=== PATIENT | female | born 2000 | race Caucasian/White ===

== ENCOUNTER 2022-04-25 15:06 | Outpatient (CLI) | payer BC, SELFPAY ==
[2022-04-25 16:32] LABS: Albumin* 5.1 g/dL (3.3-5.0); Chloride* 105 mmol/L (96-114); Potassium* 3.6 mmol/L (3.6-5.1); Sodium* 139 mmol/L (135-149)
[2022-04-25 16:34] LABS: Bilirubin Total* 0.6 mg/dL (0.1-1.5); Carbon Dioxide* 25 mmol/L (20-32); Estimated Glomerular Filt Rate 83 ml/min
[2022-04-25 16:35] LABS: Alanine Aminotransferase* 18 U/L (4-35); Alkaline Phosphatase* 64 U/L (40-150); Aspartate Amino Transferase* 35 U/L (12-35); Blood Urea Nitrogen* 18 mg/dL (5-24); Calcium* 9.7 mg/dL (8.4-10.6); Glucose* 90 mg/dL (60-115); Total Protein* 8.2 g/dL (6.0-8.3)
== END 2022-04-25 15:07 | disposition home or self-care (01) ==
LOC: NFLDUCREF 15:15
PROVIDERS: Visit Provider Student in an Organized Health Care Education/Training Program
DX: R11.2 Nausea with vomiting, unspecified (principal); R42 Dizziness and giddiness
CPT/HCPCS: 80053

== ENCOUNTER 2024-01-16 13:04 | Emergency (ER) | payer BC, SELFPAY ==
[2024-01-16] VITALS (17 sets, daily range): BP systolic 66–128; BP diastolic 52–82; PULSE 75–110; RESP 16; TEMP 36.4; O2SAT 98–100; BMI 20.5
--- NOTE | 2024-01-16 14:06 | ED_ITS ---
HPI - Dizziness General Chief Complaint: Dizziness/Vertigo Stated Complaint: +Covid, dizzy Time Seen by Provider: 01/16/24 13:29 History of Present Illness HPI Narrative: This 23-year-old female comes in reporting lightheadedness symptoms. She has a pre-existing history of POTS syndrome and celiac disease. She was diagnosed with COVID a few days ago and started Paxil of it yesterday. She states that she is feeling better in that regard but comes in with nausea and decreased food intake and feeling persistently lightheaded. She does arrive with the borderline tachycardia with rate at 100 2 beats per minute. Other vital signs are normal. Related Data Home Medications ?Medication ?Instructions ?Recorded ?Confirmed meloxicam 15 mg tablet 15 mg PO DAILY 04/25/22 01/16/24 omeprazole 40 mg capsule,delayed 40 mg PO DAILY 04/25/22 01/16/24 release sumatriptan succinate 100 mg tablet 100 mg PO .prn 04/25/22 01/16/24 nirmatrelvir 150 mg-ritonavir 100 See Rx Instructions PO .COMPLEX 01/16/24 01/16/24 mg tablets in a dose pack (Paxlovid) Allergies Allergy/AdvReac Type Severity Reaction Status Date / Time amoxicillin Allergy Verified 01/16/24 13:13 Review of Systems Status of ROS: Reports: 10 or more systems reviewed and unremarkable except as noted in History and below Narrative: Constitutional: No fevers, no weight gain or loss. Eyes: No discharge. No vision changes. HENT: Nasal congestion, no sore throat, no ear pain. Cardiovascular: No chest pain, no palpitations. Respiratory: No shortness of breath, no wheezes. Gastrointestinal: No abdominal pain, no vomiting, no diarrhea. Genitourinary: No dysuria, no hematuria. Musculoskeletal: Normal range of motion. Skin: No rashes, no pruritis. Neurological: No weakness, sensory change, speech change. Endo/Heme/Allergies: No bruising or bleeding. No polydipsia. Pysch: no suicidality, no anxiety, no insomnia. All other systems reviewed and are negative. PFS PFS Social History Smoking Status: Never smoker Do you use any of these nicotine containing products: None Second hand tobacco smoke exposure: No How often do you have a drink containing alcohol: never AUDIT-C Alcohol total score: 0 Non-prescribed substance use: denies use Exam Narrative: Exam Narrative: Constitutional: Well-developed, well-nourished, no acute distress. HEENT: Normocephalic, atraumatic. Neck: Normal range of motion. Nontender. Supple. Heart: Regular. No murmurs. Borderline tachycardia. Intact distal pulses. Lungs: Clear to auscultation. No chest discomfort. No wheezes, rhonchi, or rales. Abdomen: Normal bowel sounds. Nontender. No rebound tenderness. Genitalia: Deferred. Back: No midline tenderness. Normal range of motion. Extremities: Normal range of motion. No injury. Skin: Intact. No rash. Warm. No erythema or pallor. Neurologic: No altered sensation. No weakness. Alert and oriented. Psychiatric: No suicidality. No anxiety or depression. No insomnia. Nursing notes and vitals signs are reviewed. Const: Vital Signs, click to edit/add: Vital Signs - 24 hr 01/16/24 13:14 Temperature 97.6 F Pulse Rate [Pulse Oximeter] 102 H Respiratory Rate 16 Blood Pressure [Ri ght Upper Arm] 128/82 Pulse Oximetry 98 Oxygen Delivery Me thod Room Air Course Vital Signs Vital signs: Initial Vital Signs Temperature 97.6 F 01/16/24 13:14 Temperature Source Temporal Artery Scan 01/16/24 13:14 Pulse Rate 102 H 01/16/24 13:14 Respiratory Rate 16 01/16/24 13:14 Blood Pressure 128/82 01/16/24 13:14 Blood Pressure Mean 97 01/16/24 13:14 Blood Pressure Position Sitting 01/16/24 13:14 Pulse Oximetry 98 01/16/24 13:14 Oxygen Delivery Method Room Air 01/16/24 13:14 Vital Signs Temperature 97.6 F 01/16/24 13:14 Pulse Rate 102 H 01/16/24 13:14 Respiratory Rate 16 01/16/24 13:14 Blood Pressure 128/82 01/16/24 13:14 Pulse Oximetry 98 01/16/24 13:14 Oxygen Delivery Method Room Air 01/16/24 13:14 Temperature 97.6 F 01/16/24 13:14 Pulse Rate 102 H 01/16/24 13:14 Respiratory Rate 16 01/16/24 13:14 Blood Pressure 128/82 01/16/24 13:14 Pulse Oximetry 98 01/16/24 13:14 Oxygen Delivery Method Room Air 01/16/24 13:14 Medications Administered Medications: Discontinued Medications Generic Name Dose Route Start Last Admin Trade Name Obey PRRadha Reason Stop Dose Admin Dexamethasone 10 mg 01/16/24 14:03 01/16/24 14:35 Dexamethasone 4 Mg/Ml Vial IV 01/16/24 14:04 10 mg ONCE ONE Administration Dextrose/Sodium Chloride 1,000 mls @ 1,000 mls/hr 01/16/24 14:03 01/16/24 15:49 5 % Dextrose/0.45% Sod Chlor IV 01/16/24 15:02 Infused .Q1H ONE Infusion Ketorolac Tromethamine 15 mg 01/16/24 14:03 01/16/24 14:35 Ketorolac 30 Mg/Ml Inj IVP 01/16/24 14:04 15 mg ONCE ONE Administration Ondansetron HCl 4 mg 01/16/24 14:03 01/16/24 14:35 Ondansetron 2 Mg/Ml Inj IVP 01/16/24 14:04 4 mg ONCE ONE Administration MDM - Dizziness MDM Narrative Medical decision making narrative: This patient comes in reporting nausea and lightheadedness symptoms. An IV was established where she received 4 mg of Zofran and a L of D5 half-normal saline. Her nausea symptoms have improved but she continues to feel lightheaded. Her blood pressure on arrival was a systolic value of 128 and pulse was borderline tachycardic. She had subsequent readings of blood pressure with systolic value in the 80s. She is laying on her side which may affect the blood pressure readings. She has normal return of basic metabolic panel results. The patient did receive 2 more L of normal saline. Lab Data Labs: Lab Results 01/16/24 Range/Units 14:30 Sodium 138 (135-149) mmol/L Potassium 3.9 (3.6-5.1) mmol/L Chloride 106 (96-114) mmol/L Carbon Dioxide 24 (20-32) mmol/L Anion Gap 8 (7-15) mEq/L BUN 20 (5-24) mg/dL Creatinine 0.7 (0.5-1.5) mg/dL Estimated Creat Clear 111.03 Estimated GFR 125 ml/min Glucose 75 (60-115) mg/dL Calcium 9.4 (8.4-10.6) mg/dL Discharge Plan Discharge Clinical Impression: Volume depletion, COVID-19 Patient Disposition: Home, Self-Care Condition: Stable Additional Instructions: Take fluids and continue current medications. Increase diet as tolerated. Follow up with MD return if worsening. Prescriptions: No Action omeprazole 40 mg capsule,delayed release(DR/EC) 40 mg PO DAILY Patient Comments: TAKE 1 CAPSULE BY MOUTH DAILY 30 MINS BEFORE BREAKFAST FOR 90 DAYS. meloxicam 15 mg tablet 15 mg PO DAILY sumatriptan succinate 100 mg tablet 100 mg PO .prn Patient Comments: TAKE 1 TABLET BY MOUTH, CAN BE REPEATED AFTER 2 HOURS; MAX DOSE 200 MG PER DAY. Paxlovid 150-100 mg tablets,dose pack See Rx Instructions .ROUTE .COMPLEX Rx Instructions: orally per package directions Follow Up/Referrals: Provider,Not a Local [Primary Care Provider] - Stand Alone [facility]: [facility] Info Inst[facility]
[2024-01-16] MEDS: KETOROLAC 30 MG/ML inj 15 MG IVP (14:35)
[2024-01-16] MEDS: 5 % DEXTROSE/0.45% SOD CHLOR 1,000 ML 1000 ML IV (14:35)
[2024-01-16] MEDS: ONDANSETRON 2 MG/ML inj 4 MG IVP (14:35)
[2024-01-16] MEDS: dexAMETHasone 4 MG/ML VIAL 10 MG IV (14:35)
[2024-01-16 15:14] LABS: Chloride* 106 mmol/L (96-114); Potassium* 3.9 mmol/L (3.6-5.1); Sodium* 138 mmol/L (135-149)
[2024-01-16 15:17] LABS: Anion Gap 8 mEq/L (7-15); Carbon Dioxide* 24 mmol/L (20-32); Creatinine* 0.7 mg/dL (0.5-1.5); Est. Creatinine Clearance* 111.03; Estimated Glomerular Filt Rate 125 ml/min
[2024-01-16 15:18] LABS: Blood Urea Nitrogen* 20 mg/dL (5-24); Calcium* 9.4 mg/dL (8.4-10.6); Glucose* 75 mg/dL (60-115)
[2024-01-16] MEDS: 0.9 % SODIUM CHLORIDE 1000 ml 1,000 ML IV ×2 (16:20)
== END 2024-01-16 17:56 | disposition home or self-care (01) ==
PROVIDERS: Emergency Provider Emergency Medicine Emergency Medical Services
DX: U07.1 COVID-19 (principal); E86.9 Volume depletion, unspecified
CPT/HCPCS: 36415; 80048; 96374; 96375; 99284; J1100; J1885; J2405; J7030; S5010